=== PATIENT | female | born 1950 | race Caucasian/White ===

== ENCOUNTER 2020-10-01 13:06 | Inpatient (IN) | payer MEDICARE, BC ==
[~2020-10-01] VITALS: Ht 177.8 cm; Wt 69.0 kg
[2020-10-01 13:50] LABS: BASOPHILS % (AUTO) 0.5 % (0-1); EOSINOPHILS % (AUTO) 0.1 % (0-6); HEMATOCRIT 40.4 % (35.0-45.0); HEMOGLOBIN 14.1 g/dl (12.0-16.0); LYMPHOCYTES # (AUTO) 0.3 X10'3 (1.1-4.8); LYMPHOCYTES % (AUTO) 4.9 % (21-51); MEAN CORPUSCULAR HEMOGLOBIN 31.9 PG (27.0-31.0); MEAN CORPUSCULAR HGB CONC 34.9 g/dL (33.0-36.5); MEAN CORPUSCULAR VOLUME 91.4 FL (78-98); MEAN PLATELET VOLUME 8.6 FL (7.4-10.4); MONOCYTES # (AUTO) 0.4 X10'3 (0-0.9); MONOCYTES % (AUTO) 5.3 % (2-12); NEUTROPHILS # (AUTO) 6.3 X10'3 (1.8-7.7); NEUTROPHILS % (AUTO) 89.2 % (42-75); PLATELET COUNT 191 X10'3 (140-440); RED BLOOD COUNT 4.42 X10'6 (4.20-5.60); RED CELL DISTRIBUTION WIDTH 12.8 % (11.5-14.5); WHITE BLOOD COUNT 7.1 X10'3 (4.5-11.0)
[2020-10-01 14:06] LABS: ALANINE AMINOTRANSFERASE 39 U/L (12-78); ALBUMIN 3.9 G/DL (3.4-5.0); ALBUMIN/GLOBULIN RATIO 1.1 (1.1-1.5); ALKALINE PHOSPHATASE 69 IU/L (46-116); ANION GAP 12 (8-16); ASPARTATE AMINO TRANSFERASE 31 U/L (10-37); BILIRUBIN,TOTAL 0.7 MG/DL (0.1-1.0); BLOOD UREA NITROGEN 15 MG/DL (7-18); BUN/CREATININE RATIO 15.5 (6.6-38.0); CALCIUM 9.3 MG/DL (8.5-10.1); CHLORIDE 100 MMOL/L (99-107); CREATININE 0.97 MG/DL (0.40-0.90); GLUCOSE 127 MG/DL (70-104); POTASSIUM 3.3 MMOL/L (3.5-5.1); SODIUM 137 MMOL/L (135-145); TOTAL CARBON DIOXIDE 25.4 MMOL/L (24-32); TOTAL PROTEIN 7.4 G/DL (6.4-8.2); eGFR 57 ML/MIN
[2020-10-01 14:08] LABS: PARTIAL THROMBOPLASTIN TIME 28 SECONDS (22-32)
[2020-10-01] MEDS ORDERED: magnesium Cl slow-release 64mg tablet PO PRN (15:20)
[2020-10-01] MEDS ORDERED: magnesium 2GM in 50ml NS 50 ML IV PRN (15:20)
[2020-10-01] MEDS ORDERED: ondansetron/PF 4mg/2ml inj IV PRN (15:20)
[2020-10-01] MEDS ORDERED: acetaminophen 325mg tablet PO PRN (15:20)
[2020-10-01] MEDS ORDERED: magnesium 4gm in 100ml NS 100 ML IV PRN (15:20)
[2020-10-01] MEDS ORDERED: potassium Cl 20 mEq SR tablet PO PRN (15:20)
[2020-10-01] MEDS ORDERED: potassium Cl 40MEQ/1/2NS 520ml 520 ML IV PRN ×2 (15:20)
[2020-10-01 16:01] LABS: CLARITY,URINE CLEAR (Clear); COLOR,URINE YELLOW (Yellow); GLUCOSE, URINE NEGATIVE (Neg); KETONES,URINE TRACE mg/dl (Neg); LEUKOCYTE ESTERASE ,URINE SMALL (Neg); NITRITES, URINE NEGATIVE (Neg); OCCULT BLOOD,URINE SMALL (Neg); PROTEIN,URINE NEGATIVE (Neg); UROBILINOGEN,URINE 0.2 E.U/dL (0.2-1.0)
[2020-10-01 16:04] LABS: UA COLLECTION TYPE CLN CATCH MIDSTREAM
[2020-10-01 16:05] LABS: BACTERIA,URINE 3+ /HPF (Neg); MUCUS STRANDS FEW /LPF (Neg); RBC,URINE 0-2 /HPF (0-2); SQUAMOUS EPITHELIAL CELL,UR FEW /LPF (FEW); TRANSITIONAL EPI CELLS,URINE FEW /HPF
--- NOTE | 2020-10-01 17:03 | NUR ---
Patient in room ED 16. I have received report from [facility] and had the opportunity to ask questions. Will assume patient care once to [facility].
[2020-10-01] MEDS ORDERED: AMLO5TAB4 PO (17:23)
[2020-10-01] MEDS ORDERED: PANT-47 PO (17:23)
[2020-10-01] MEDS ORDERED: ATOR10TA87 PO (17:23)
[2020-10-01] MEDS ORDERED: ASPI-611 PO (17:23)
[2020-10-01 17:45] VITALS: BP 132/82
--- NOTE | 2020-10-01 17:45 | NUR ---
Pt arrived to [facility], to Room 310. Pt A&Ox4, no c/o, stable and appropriate. VSS. PIV to RFA flushes without difficulty. Small abrasion/laceration noted to top back of head. Pt oriented to room. Reviewed orders/POC with pt. Will continue to monitor.
--- NOTE | 2020-10-01 18:30 | NUR ---
Problems reprioritized. Patient report given, questions answered & plan of care reviewed with Justice LOREDO.
--- NOTE | 2020-10-01 18:45 | NUR ---
Patient in room MED 310. I have received report from RONALD LOREDO and had the opportunity to ask questions and assume patient care.
[2020-10-01] MEDS: normal saline 1000ml 1,000 ML IV SCH (19:00)
[2020-10-01] MEDS: potassium Cl 20 mEq SR tablet PO PRN (19:32)
[2020-10-01 20:00] VITALS: BP_SYST 121; BP_SYST 128; BP_SYST 149; BP_DIAS 62; BP_DIAS 76; BP_DIAS 77; BP_DIAS 91
[2020-10-01] MEDS: K and/or MAG REPLACEMENT MC SCH (20:51)
[2020-10-01 23:00] VITALS: BP 128/78
[2020-10-02] VITALS (7 sets, daily range): BP systolic 114–151; BP diastolic 71–92
--- NOTE | 2020-10-02 00:25 | NUR ---
notified PAGER ID: [phone] MESSAGE: [phone] Sylvia Mg is c/o of back pain and overall stiffness pain. trisha Allison a couple hours ago is requesting Tylenol for pain. The Tylenol that is ordered currently is for fever. Can we get Tylenol prn pain please Justice [phone]
[2020-10-02] MEDS ORDERED: acetaminophen 325mg tablet PO PRN (00:35)
[2020-10-02] MEDS: normal saline 1000ml 1,000 ML IV SCH ×4 (01:01→21:41)
[2020-10-02 02:08] LABS: BASOPHILS % (AUTO) 0.5 % (0-1); EOSINOPHILS % (AUTO) 0.2 % (0-6); HEMATOCRIT 39.9 % (35.0-45.0); HEMOGLOBIN 13.6 g/dl (12.0-16.0); LYMPHOCYTES # (AUTO) 0.5 X10'3 (1.1-4.8); LYMPHOCYTES % (AUTO) 7.8 % (21-51); MEAN CORPUSCULAR HEMOGLOBIN 31.6 PG (27.0-31.0); MEAN CORPUSCULAR HGB CONC 34.1 g/dL (33.0-36.5); MEAN CORPUSCULAR VOLUME 92.7 FL (78-98); MEAN PLATELET VOLUME 9.2 FL (7.4-10.4); MONOCYTES # (AUTO) 0.5 X10'3 (0-0.9); MONOCYTES % (AUTO) 8.5 % (2-12); NEUTROPHILS # (AUTO) 5.3 X10'3 (1.8-7.7); PLATELET COUNT 183 X10'3 (140-440); RED CELL DISTRIBUTION WIDTH 12.8 % (11.5-14.5); WHITE BLOOD COUNT 6.4 X10'3 (4.5-11.0)
[2020-10-02 02:15] LABS: ALBUMIN 3.4 G/DL (3.4-5.0); ANION GAP 13 (8-16); BLOOD UREA NITROGEN 11 MG/DL (7-18); BUN/CREATININE RATIO 12.4 (6.6-38.0); CALCIUM 9.1 MG/DL (8.5-10.1); CHLORIDE 104 MMOL/L (99-107); CHOL/HDL RATIO 2.2 (0.00-4.99); CHOLESTEROL 154 MG/DL (0-200); CREATININE 0.89 MG/DL (0.40-0.90); GLUCOSE 133 MG/DL (70-104); HDL CHOLESTEROL 69 MG/DL (35-60); LDL CHOLESTEROL 67 MG/DL (50-100); POTASSIUM 3.2 MMOL/L (3.5-5.1); SODIUM 140 MMOL/L (135-145); TRIGLYCERIDES 102 MG/DL (20-135); eGFR 63 ML/MIN
--- NOTE | 2020-10-02 05:58 | NUR ---
Pt A&O able to make needs known. Ambulated to bathroom and in room independently once disconnected from equipment. Pt had c/o of headache, back ache and overall generalized pain about two hours after her [place]. She requested Tylenol, her Tylenol order is for fever only, i messaged dr Jasso regarding Tylenol request I received an order for 650mg po Q6 PRN for pain 1-3. Pt received Tylenol and stated later it was effective. She is being worked up for syncope.
--- NOTE | 2020-10-02 06:18 | NUR ---
Problems reprioritized. Patient report given, questions answered & plan of care reviewed with Juana LOREDO.
[2020-10-02] MEDS: potassium Cl 20 mEq SR tablet PO PRN (08:34)
[2020-10-02] MEDS: K and/or MAG REPLACEMENT MC SCH ×2 (08:34→20:00)
[2020-10-02] MEDS ORDERED: ZOLP10TA PO (11:14)
[2020-10-02] MEDS ORDERED: zolpidem 5mg tablet PO PRN (16:00)
[2020-10-02] MEDS ORDERED: regadenoson 0.4mg/5ml syringe IV PRN (17:25)
[2020-10-02] MEDS ORDERED: nitroGLYCERIN 0.4mg SUBLingual tab SL PRN (17:25)
[2020-10-02] MEDS ORDERED: metoprolol tartrate 1mg/ml inj IV PRN (17:25)
[2020-10-02] MEDS ORDERED: aminophylline 250mg/10ml inj. IV PRN (17:25)
[2020-10-02] MEDS: aspirin 81mg tab.chew PO SCH (20:27)
[2020-10-02] MEDS: atorvastatin 10mg tablet PO SCH (20:28)
[2020-10-02] MEDS: amLODIPine 5mg tablet PO SCH (20:31)
[2020-10-02] MEDS: CefTRIAXone/D5W-Rocephin 1gm 50 ML IV SCH (21:40)
[2020-10-03] VITALS (15 sets, daily range): BP systolic 121–155; BP diastolic 69–97
[2020-10-03 05:40] LABS: BASOPHILS % (AUTO) 0.8 % (0-1); EOSINOPHILS # (AUTO) 0.2 X10'3 (0-0.9); EOSINOPHILS % (AUTO) 4.2 % (0-6); HEMATOCRIT 39.5 % (35.0-45.0); HEMOGLOBIN 13.5 g/dl (12.0-16.0); LYMPHOCYTES % (AUTO) 19.4 % (21-51); MEAN CORPUSCULAR HEMOGLOBIN 31.5 PG (27.0-31.0); MEAN CORPUSCULAR HGB CONC 34.2 g/dL (33.0-36.5); MEAN CORPUSCULAR VOLUME 92.3 FL (78-98); MEAN PLATELET VOLUME 8.8 FL (7.4-10.4); MONOCYTES # (AUTO) 0.6 X10'3 (0-0.9); MONOCYTES % (AUTO) 11.9 % (2-12); NEUTROPHILS # (AUTO) 3.2 X10'3 (1.8-7.7); NEUTROPHILS % (AUTO) 63.7 % (42-75); PLATELET COUNT 169 X10'3 (140-440); RED BLOOD COUNT 4.28 X10'6 (4.20-5.60); RED CELL DISTRIBUTION WIDTH 12.8 % (11.5-14.5); WHITE BLOOD COUNT 4.9 X10'3 (4.5-11.0)
[2020-10-03 05:48] LABS: ALBUMIN 3.1 G/DL (3.4-5.0); ANION GAP 10 (8-16); BLOOD UREA NITROGEN 7 MG/DL (7-18); BUN/CREATININE RATIO 9.5 (6.6-38.0); CALCIUM 9.1 MG/DL (8.5-10.1); CHLORIDE 110 MMOL/L (99-107); CREATININE 0.74 MG/DL (0.40-0.90); GLUCOSE 114 MG/DL (70-104); MAGNESIUM 2.2 MG/DL (1.5-2.4); POTASSIUM 3.7 MMOL/L (3.5-5.1); SODIUM 144 MMOL/L (135-145); TOTAL CARBON DIOXIDE 24.2 MMOL/L (24-32); eGFR 78 ML/MIN
--- NOTE | 2020-10-03 06:26 | NUR ---
Patient in room MED 310. I have received report from nora hummel and had the opportunity to ask questions and assume patient care.
[2020-10-03] MEDS: K and/or MAG REPLACEMENT MC SCH ×2 (06:28→20:00)
[2020-10-03] MEDS ORDERED: pantoprazole 40mg Tablet.DR PO SCH ×2 (08:00→09:52)
--- NOTE | 2020-10-03 12:06 | NUR ---
dr. velasquez paged: PAGER ID: [phone] MESSAGE: 310: BRIX - stress test resulted, slightly positive. ?D/C or cardio consult? nurse Myriam [id number]
[2020-10-03] MEDS: normal saline 1000ml 1,000 ML IV SCH (12:44)
--- NOTE | 2020-10-03 18:15 | NUR ---
Problems reprioritized. Patient report given, questions answered & plan of care reviewed with GERTRUDE WHITFIELD.
--- NOTE | 2020-10-03 19:40 | NUR ---
paged Dr. Vazquez - order in computer for patient discharge. need to clarify.
[2020-10-03] MEDS: CefTRIAXone/D5W-Rocephin 1gm 50 ML IV SCH (20:10)
[2020-10-03] MEDS: amLODIPine 5mg tablet PO SCH (20:10)
[2020-10-03] MEDS: lactobacillus rhamnosus 10,000 MMU CELLS/CAPSULE PO SCH (20:10)
[2020-10-03] MEDS: atorvastatin 10mg tablet PO SCH (20:10)
[2020-10-03] MEDS: aspirin 81mg tab.chew PO SCH (20:10)
--- NOTE | 2020-10-03 20:30 | NUR ---
dr. Vazquez called - consulted "radio station operator windows deployment technician which should be dr. christian" to see patient in am. cancel discharge tonight.
[2020-10-04 01:25] VITALS: BP 136/81
[2020-10-04 05:53] LABS: BASOPHILS # (AUTO) 0.1 X10'3 (0-0.2); BASOPHILS % (AUTO) 1.3 % (0-1); EOSINOPHILS # (AUTO) 0.3 X10'3 (0-0.9); HEMATOCRIT 38.5 % (35.0-45.0); HEMOGLOBIN 13.1 g/dl (12.0-16.0); LYMPHOCYTES % (AUTO) 19.7 % (21-51); MEAN CORPUSCULAR HEMOGLOBIN 31.5 PG (27.0-31.0); MEAN CORPUSCULAR HGB CONC 33.9 g/dL (33.0-36.5); MEAN CORPUSCULAR VOLUME 92.8 FL (78-98); MEAN PLATELET VOLUME 8.9 FL (7.4-10.4); MONOCYTES # (AUTO) 0.5 X10'3 (0-0.9); MONOCYTES % (AUTO) 9.2 % (2-12); NEUTROPHILS # (AUTO) 3.4 X10'3 (1.8-7.7); NEUTROPHILS % (AUTO) 64.8 % (42-75); PLATELET COUNT 200 X10'3 (140-440); RED BLOOD COUNT 4.15 X10'6 (4.20-5.60); RED CELL DISTRIBUTION WIDTH 12.8 % (11.5-14.5); WHITE BLOOD COUNT 5.3 X10'3 (4.5-11.0)
[2020-10-04 06:00] VITALS: BP 126/93
[2020-10-04 06:07] LABS: ALBUMIN 3.1 G/DL (3.4-5.0); ANION GAP 10 (8-16); BLOOD UREA NITROGEN 10 MG/DL (7-18); BUN/CREATININE RATIO 13.3 (6.6-38.0); CALCIUM 9.3 MG/DL (8.5-10.1); CHLORIDE 109 MMOL/L (99-107); CREATININE 0.75 MG/DL (0.40-0.90); GLUCOSE 104 MG/DL (70-104); MAGNESIUM 2.3 MG/DL (1.5-2.4); POTASSIUM 3.6 MMOL/L (3.5-5.1); SODIUM 144 MMOL/L (135-145); TOTAL CARBON DIOXIDE 25.4 MMOL/L (24-32); eGFR 76 ML/MIN
--- NOTE | 2020-10-04 06:24 | NUR ---
reported to days. noted pt resting w/o distress. has info for heart cath in case that is the direction the ceramic coater decides.
--- NOTE | 2020-10-04 06:55 | NUR ---
PAGER ID: [phone] MESSAGE: 310 Sylvia Gonzalez, syncope episode, pending cardiology consult and do you want the patient on continuous telemetry ? thanks
[2020-10-04] MEDS: lactobacillus rhamnosus 10,000 MMU CELLS/CAPSULE PO SCH (07:56)
[2020-10-04 11:00] VITALS: BP 142/88
--- NOTE | 2020-10-04 12:32 | NUR ---
PAGER ID: [phone] MESSAGE: Getting ready to discharge Sylvia Gonzalez, syncope episode, 310. Does the patient need to go home on antibiotics for UTI from ecoli
--- NOTE | 2020-10-04 13:18 | NUR ---
PAGER ID: [phone] MESSAGE: Getting ready to discharge Sylvia Gonzalez, syncope episode, 310. Does the patient need to go home on antibiotics PO for UTI from ecoli or follow up with primary for UTI?
[2020-10-04] MEDS ORDERED: CIPR-202 PO (13:27)
--- NOTE | 2020-10-04 14:39 | NUR ---
patient discharged at 1430, given discharge instructions and paper work. States her antibiotic is ready at the pharmacy. States she spoke to Dr. Krishnamurthy office and she is headed that way to schedule an appointment. IV discontinued without complications. vitals WNL prior to leaving. Patient walked to her car without a problem.
== END 2020-10-04 14:30 | disposition home or self-care (01) | DRG 312 ==
LOC: ER 13:07 → ED HOLD 15:20 → OBSVTOIN 15:20 → EDBEDREQ 16:30 → MED 3N 18:01
PROVIDERS: ADMIT Internal Medicine; ATTEND Internal Medicine
DX: R55 Syncope and collapse (principal); N39.0 Urinary tract infection, site not specified; B96.20 Unspecified Escherichia coli [E. coli] as the cause of diseases classified elsewhere; E78.5 Hyperlipidemia, unspecified; W18.2XXA Fall in (into) shower or empty bathtub, initial encounter; G47.00 Insomnia, unspecified; I10 Essential (primary) hypertension; K21.9 Gastro-esophageal reflux disease without esophagitis; S00.01XA Abrasion of scalp, initial encounter; S00.83XA Contusion of other part of head, initial encounter; Z90.49 Acquired absence of other specified parts of digestive tract; Z90.710 Acquired absence of both cervix and uterus; Y93.89 Activity, other specified; Y92.098 Other place in other non-institutional residence as the place of occurrence of the external cause; Y99.8 Other external cause status; Z79.899 Other long term (current) drug therapy; Z79.82 Long term (current) use of aspirin
CPT/HCPCS: 36415; 70450; 71045; 78452; 80048; 80053; 80061; 81001; 82948; 83735; 83880; 84484; 85025; 85610; 85730; 87077; 87081; 87088; 87186; 87635; 93005; 93017; 93306; 93308; 93880; 97161; 97530; 99285; A9500; G0378; J0696; J2785; J7030